=== PATIENT | male | born 1950 | race Caucasian/White ===

== ENCOUNTER 2016-12-14 07:04 | Day surgery (SDC) | payer OTHER, MEDICARE ==
[2016-12-14] MEDS ORDERED: D5 LR 1000 ML 1,000 ML IV ONE (07:24)
[2016-12-14] MEDS ORDERED: NS 1000 ML 1,000 ML ONE (07:29)
[2016-12-14] MEDS ORDERED: XYLOCAINE 2 % (PLAIN) ONE (08:14)
[2016-12-14] MEDS ORDERED: DIPRIVAN VIAL 20 ML ONE (08:14)
[2016-12-14] MEDS ORDERED: DIPRIVAN VIAL 10 ML ONE (08:40)
[2016-12-14 09:52] VITALS: BP 130/61
== END 2016-12-14 09:10 | disposition home or self-care (01) ==
LOC: SURG1 07:04
PROVIDERS: ATTEND Internal Medicine Gastroenterology
PROC: 0DBM8ZX Excision of Descending Colon, Via Natural or Artificial Opening Endoscopic, Diagnostic (ICD-10-PCS; principal; 2016-12-14 07:30)
PROC: 0DBK8ZX Excision of Ascending Colon, Via Natural or Artificial Opening Endoscopic, Diagnostic (ICD-10-PCS; principal; 2016-12-14 07:30)
PROC: 0DJD8ZZ Inspection of Lower Intestinal Tract, Via Natural or Artificial Opening Endoscopic (ICD-10-PCS; principal; 2016-12-14 07:30)
DX: Z86.010 Personal history of colon polyps (principal); R19.4 Change in bowel habit; K63.5 Polyp of colon; K64.0 First degree hemorrhoids
CPT/HCPCS: A4217; J2001; J3490; J7120

== ENCOUNTER 2024-08-03 08:15 | Inpatient (IN) ==
[2024-08-03 09:08] LABS: BASOPHILS % (AUTO) 0.3 % (0.2-1.0); EOSINOPHILS # (AUTO) 0.6 x10^3/uL (0.0-0.2); EOSINOPHILS % (AUTO) 4.8 % (0.9-2.9); HEMATOCRIT 44.2 % (42.0-54.0); HEMOGLOBIN 15.4 g/dL (13.5-18.0); LYMPHOCYTES # (AUTO) 2.4 X10^3/uL (1.3-2.9); LYMPHOCYTES % (AUTO) 20.2 % (21.0-51.0); MEAN CORPUSCULAR HEMOGLOBIN 33.7 pg (27.0-34.0); MEAN CORPUSCULAR HGB CONC 34.9 g/dL (33.0-35.0); MEAN CORPUSCULAR VOLUME 96.4 fL (80.0-100.0); MEAN PLATELET VOLUME 8.4 fL (7.4-11.0); MONOCYTES # (AUTO) 1.1 x10^3/uL (0.3-0.8); NEUTROPHILS # (AUTO) 7.6 x10^3/uL (2.2-4.8); NEUTROPHILS % (AUTO) 65.7 % (42.0-75.0); PLATELET COUNT 267 X10^3/uL (150.0-450.0); RED BLOOD COUNT 4.58 X10^6/uL (4.7-6.0); RED CELL DISTRIBUTION WIDTH 13.2 % (11.6-16.5); WHITE BLOOD COUNT 11.6 X10^3/uL (3.6-10.0)
[2024-08-03 09:14] LABS: ALANINE AMINOTRANSFERASE 25 Units/L (12-78); ALBUMIN 3.8 g/dL (3.4-5.0); ALKALINE PHOSPHATASE 48 Units/L (46-116); AMYLASE 25 Units/L (25-115); ASPARTATE AMINO TRANSFERASE 15 Units/L (15-37); BLOOD UREA NITROGEN 44 mg/dL (7-18); CALCIUM 9.3 mg/dL (8.5-10.1); CARBON DIOXIDE 21.3 mmol/L (21-32); CHLORIDE 95 mmol/L (98-107); COR NA(FOR HYPERGLY) 132 mmol/L (136-145); GLUCOSE 227 mg/dL (65-99); LIPASE 33 Units/L (16-77); POTASSIUM 4.2 mmol/L (3.5-5.1); SODIUM 129 mmol/L (136-145); TOTAL PROTEIN 7.7 g/dL (6.4-8.2); eGFR NON BLACK RACES 23 (>60)
[2024-08-03] MEDS: ZOFRAN INJ 4 MG VIAL IVP ONE (09:20)
[2024-08-03] MEDS: NS 1,000 ML IV 1,000 ML IV ONE (09:20)
[2024-08-03] MEDS: IMODIUM CAP 2 MG PO ONE (09:21)
--- NOTE | 2024-08-03 10:02 | CT ---
EXAM:ABDOMEN/PELVIS W/O CONHISTORY:last two weeks he's had fever, chills, n/v, diarrhea, no appetite and lethargic. Pt states he has bilateral lower abdominal pain;COMPARISON:None.TECHNIQUE:Multiple axial images of the abdomen and pelvis were obtained from the lung bases to the pubic symphysis without the administration of IV contrast. Dose reduction techniques including Automated Exposure Control (AEC) and adjustment of mA and kV were utilized.FINDINGS:The visualized portions of the lung bases are clear.The liver is normal in attenuation for noncontrast exam. There is no biliary dilatation identified.No radiopaque gallstones or acute inflammatory changes of the gallbladder.The spleen is average size.No inflammatory changes of the pancreas are identified.The adrenal glands are symmetric in size and overall morphology.No hydronephrosis of the left or right kidney. 22 mm Cortically based cyst of the lower pole of the left kidney. Nonobstructing left renal calculus measuring 7.5 mmNo significant mesenteric lymphadenopathy or stranding can be observed. No free fluid or free air is seen within the abdomen.Normal caliber aorta with generalized atherosclerosis which is contiguous with iliofemoral tributaries.Fluid-filled enteric and colonic segments are demonstrated with scattered air-fluid levels. Within limitations of a noncontrast assessment, no aggressively thickened bowel segments are demonstrated there is no mesenteric root edema, or evidence of inflammatory stranding of the mesenteric fat around the large or small bowel. A couple of ingested punctate radiopaque intraluminal foci are demonstrated within the right colon. A short-segment of jejunum appears marginally dilated in the left upper quadrant without discrete transition point. The remainder of the bowel is normal in caliber.The appendix is normal in caliber and without inflammatory change.Urinary bladder is contractedProstate gland is not visualized and may be surgically absent. No organized free fluid or lymphadenopathy of the pelvis is observed.A patulous fat containing left inguinal canal is observed. No aggressive bony lesions are identified. Postsurgical changes of the spine are demonstrated at the L3-4 level consisting of fusion with intervertebral spacer placement and posterior laminectomy defect. Degenerative changes of the spine are locally advanced at the levels of L3-4 and L4-5 where there is disc space narrowing, spondylosis and facet arthropathy.IMPRESSION:Fluid-filled enterocolonic segments with scattered air-fluid levels in keeping with a nonspecific diarrhea related illness; no acute radiological complications identified. Clinical correlation and routine follow-up neededAdditional chronic findings are detailed aboveTHIS IS AN ELECTRONICALLY VERIFIED FINAL REPORT08/03/2024 9:59 AM - Electronically signed by Jose Gale MD
[2024-08-03] MEDS: NS 1,000 ML IV 1,000 ML IV SCH ×2 (10:30→16:07)
--- NOTE | 2024-08-03 10:34 | DR.ABDMALE ---
HPI Time seen Time Seen by Provider: 08/03/24 08:43 PCP Primary Care Physician: Kev Wells HPI comment HPI Comment: Patient with complaints of diarrhea and fever for the last 2 weeks. Patient has had some nausea, decreased appetite and feeling wore out. Patient admits some bilateral lower abdominal pain described as cramping. Patient had stool culture ordered by PCP on Sunday. Complaint Chief Complaint:: Pt states for the last two weeks he's had fever, chills, n/v, diarrhea, no appetite and lethargic. Pt states he has bilateral lower abdominal pain that is cramping and stabbing that come and goes around 30 minutes at a time. Pt called his PCP and was told to bring a stool sample by the office. Pt brought it on Sunday. Self Treatment fo Chief Complaint: phenergan, leafran COVID-19 Coronavirus risk:travel/contact w/high risk person: No Has patient experienced Coronavirus symptoms: No Mode of arrival Mode of Arrival: Ambulatory Timing Onset of Chief Complaint: 07/20/24 PMH PMH Past Medical History: Yes Past Medical History: COPD, Diabetes, Dyslipidemia, GERD and Hypertension Past Medical History Comment: Prostate CA Past Surgical History: Yes Surgical History: Ortho Surgery Past Surgical History Comment: Prostate CA, left shoulder, lower back Family History History of Family Medical Conditions: Yes Family Medical History: Coronary Artery Disease and Heart Failure Social History Alcohol Use: Occasionally Do you use any recreational Drugs:: No Lives With: Spouse Lives Where: Home Travel Risk Coronavirus risk:travel/contact w/high risk person: No Has patient experienced Coronavirus symptoms: No Infectious screening Have you traveled outside the country in the last 6 months?: No Isolation: Standard ROS Review of Systems Constitutional: See HPI Eyes: No Symptoms Reported ENTM: No Symptoms Reported Respiratoy: No Symptoms Reported Cardiovascular: No Symptoms Reported Gastrointestinal/Abdominal: See HPI, Abdominal Pain, Diarrhea and Nausea; nega tive Constipation Genitourinary: No Symptoms Reported Neurological: No Symptoms Reported Musculoskeletal: No Symptoms Reported Integumentary: No Symptoms Reported Hematologic/Lymphatic: No Symptoms Reported Endocrine: No Symptoms Reported Psychiatric: No Symptoms Reported All Other Systems: Reviewed and Negative PE Vital Signs Vital Signs: Temp Pulse Resp BP Pulse Ox O2 Del Method 08/03/24 08:26 97.4 F L 106 H 16 107/54 97 Room Air General Limitations: No Limitations General Appearance: Alert and In No Apparent Distress Head Head Exam: Normal Inspection Eyes Eye exam: Normal Appearance ENT ENT Exam: Normal Exam Neck Neck Exam: Normal Inspection Chest Chest Inspection: Normal Inspection Respiratory Respiratory Exam: Normal Lung Sounds Bilat Cardiovascular Cardiovascular Exam: Regular Rate and Normal Rhythm Abdominal Exam Abdominal Exam: Normal Inspection, Normal Bowel Sounds, Soft, Distention and T enderness (Mild tenderness in lower abdomen bilaterally); negative Guarding, Rebound or Rigidity Rectal Rectal Exam: Deferred Back Back Exam: Normal Inspection Extremeties Extremities Exam: Normal Inspection Exam: Male: Deferred Neurologic Neurological Exam: Alert and Oriented X3 Psychiatric Psychiatric Exam: Normal Affect and Normal Mood Skin Skin Exam: Warm, Dry, Intact and Normal Color COURSE Treatment Treatment: Patient found to be very dehydrated with acute kidney injury. Symptoms have improved since in the ER. Consultation Called: 10:31 Consultation Comments: Discussed case with Dr. Caal and he is agreeable to admission. ROR Labs Reviewed 08/03/24 08:53 08/03/24 08:53 Laboratory: WBC 11.6 X10^3/uL (3.6-10.0) H 08/03/24 08:53 RBC 4.58 X10^6/uL (4.7-6.0) L 08/03/24 08:53 Hgb 15.4 g/dL (13.5-18.0) 08/03/24 08:53 Hct 44.2 % (42.0-54.0) 08/03/24 08:53 MCV 96.4 fL (80.0-100.0) 08/03/24 08:53 MCH 33.7 pg (27.0-34.0) 08/03/24 08:53 MCHC 34.9 g/dL (33.0-35.0) 08/03/24 08:53 RDW 13.2 % (11.6-16.5) 08/03/24 08:53 Plt Count 267 X10^3/uL (150.0-450.0) 08/03/24 08:53 MPV 8.4 fL (7.4-11.0) 08/03/24 08:53 Neut % (Auto) 65.7 % (42.0-75.0) 08/03/24 08:53 Lymph % (Auto) 20.2 % (21.0-51.0) L 08/03/24 08:53 [place] % (Auto) 9.0 % (0.0-13.0) 08/03/24 08:53 Eos % (Auto) 4.8 % (0.9-2.9) H 08/03/24 08:53 Baso % (Auto) 0.3 % (0.2-1.0) 08/03/24 08:53 Neut # (Auto) 7.6 x10^3/uL (2.2-4.8) H 08/03/24 08:53 Lymph # (Auto) 2.4 X10^3/uL (1.3-2.9) 08/03/24 08:53 [place] # (Auto) 1.1 x10^3/uL (0.3-0.8) H 08/03/24 08:53 Eos # (Auto) 0.6 x10^3/uL (0.0-0.2) H 08/03/24 08:53 Baso # (Auto) 0.0 X10^3/uL (0.0-0.1) 08/03/24 08:53 Absolute Nucleated RBC 0.0 /100WBC 08/03/24 08:53 Sodium 129 mmol/L (136-145) L 08/03/24 08:53 Corrected Sodium 132 mmol/L (136-145) L 08/03/24 08:53 Potassium 4.2 mmol/L (3.5-5.1) 08/03/24 08:53 Chloride 95 mmol/L (98-107) L 08/03/24 08:53 Carbon Dioxide 21.3 mmol/L (21-32) 08/03/24 08:53 BUN 44 mg/dL (7-18) H 08/03/24 08:53 Creatinine 2.90 mg/dL (0.70-1.30) H 08/03/24 08:53 Est GFR (MDRD) Af Amer 28 (>60) L 08/03/24 08:53 Est GFR (MDRD) Non-Af 23 (>60) L 08/03/24 08:53 Glucose 227 mg/dL (65-99) H 08/03/24 08:53 Calcium 9.3 mg/dL (8.5-10.1) 08/03/24 08:53 Corrected Calcium TNP 08/03/24 08:53 Total Bilirubin 0.40 mg/dL (0.2-1.0) 08/03/24 08:53 AST 15 Units/L (15-37) 08/03/24 08:53 ALT 25 Units/L (12-78) 08/03/24 08:53 Alkaline Phosphatase 48 Units/L (46-116) 08/03/24 08:53 Total Protein 7.7 g/dL (6.4-8.2) 08/03/24 08:53 Albumin 3.8 g/dL (3.4-5.0) 08/03/24 08:53 Globulin 3.9 g/dL (2.5-4.5) 08/03/24 08:53 Albumin/Globulin Ratio 1.0 Ratio (1.1-2.1) L 08/03/24 08:53 Amylase 25 Units/L (25-115) 08/03/24 08:53 Lipase 33 Units/L (16-77) 08/03/24 08:53 Opioid Opioid Risk Tool Age (Sanchez box if 16-45): No History of Preadolescent Sexual Abuse: No Total: 0 Total Score Risk Category: Low Risk Copyright: Aravind PINA predicting aberrant behaviors Discharge Plan Diagnosis Discharge Problem: Dehydration, Acute renal failure, Diarrhea Discharge Plan Patient Disposition: 09 ADMITTED INPATIENT Condition: Stable Orders to Discharge Patient Discharge Orders: Transfer (Routine); Ordered 08/03/24 Ordered By: Brannon Greer
[2024-08-03 11:28] LABS: CRYPTOSPORIDIUM PARVUM ANTIGEN NEGATIVE (NEGATIVE); GIARDIA LAMBLIA ANTIGEN NEGATIVE (NEGATIVE)
[2024-08-03 12:16] VITALS: BMI 26.2
[2024-08-03] MEDS ORDERED: MORPHINE SULFATE INJ 2 MG INJ IVP PRN (12:38)
[2024-08-03] MEDS ORDERED: TYLENOL 325 MG TAB PO PRN (12:38)
[2024-08-03] MEDS ORDERED: FLAGYL TAB 500 MG PO SCH (12:38)
[2024-08-03] MEDS: CIPRO IV 400 MG PREMIX* 400 MG/200 ML IV.SOLN. IV SCH (13:47)
[2024-08-03] MEDS: FLAGYL IV PREMIX 500 MG BAG 500 MG/100 ML BAG IV SCH (13:47)
[2024-08-03] MEDS: ZOFRAN INJ 4 MG VIAL IVP PRN (13:47)
[2024-08-03] MEDS: PROTONIX TAB 40 MG PO SCH (13:47)
[2024-08-03] MEDS ORDERED: ZESTRIL TAB 10 MG PO SCH (21:00)
[2024-08-03] MEDS ORDERED: ALPRAZOLAM 1 MG PO SCH (21:00)
[2024-08-03] MEDS: ZANAFLEX PO SCH (21:49)
[2024-08-03] MEDS: ALPRAZOLAM ODT PO SCH (21:49)
[2024-08-03] MEDS: SNACK - Diabetic Appropriate PO SCH (21:49)
[2024-08-04 05:08] LABS: BASOPHILS # (AUTO) 0.1 X10^3/uL (0.0-0.1); BASOPHILS % (AUTO) 0.5 % (0.2-1.0); EOSINOPHILS # (AUTO) 0.7 x10^3/uL (0.0-0.2); EOSINOPHILS % (AUTO) 7.5 % (0.9-2.9); HEMATOCRIT 39.6 % (42.0-54.0); LYMPHOCYTES # (AUTO) 3.4 X10^3/uL (1.3-2.9); LYMPHOCYTES % (AUTO) 35.9 % (21.0-51.0); MEAN CORPUSCULAR HGB CONC 35.4 g/dL (33.0-35.0); MEAN CORPUSCULAR VOLUME 95.8 fL (80.0-100.0); MEAN PLATELET VOLUME 8.4 fL (7.4-11.0); MONOCYTES # (AUTO) 1.1 x10^3/uL (0.3-0.8); MONOCYTES % (AUTO) 11.1 % (0.0-13.0); NEUTROPHILS # (AUTO) 4.2 x10^3/uL (2.2-4.8); PLATELET COUNT 212 X10^3/uL (150.0-450.0); RED BLOOD COUNT 4.13 X10^6/uL (4.7-6.0); RED CELL DISTRIBUTION WIDTH 13.4 % (11.6-16.5); WHITE BLOOD COUNT 9.5 X10^3/uL (3.6-10.0)
[2024-08-04 05:24] LABS: ALANINE AMINOTRANSFERASE 22 Units/L (12-78); ALBUMIN 3.4 g/dL (3.4-5.0); ALKALINE PHOSPHATASE 45 Units/L (46-116); ASPARTATE AMINO TRANSFERASE 16 Units/L (15-37); BLOOD UREA NITROGEN 35 mg/dL (7-18); CALCIUM 8.7 mg/dL (8.5-10.1); CARBON DIOXIDE 18.3 mmol/L (21-32); CHLORIDE 100 mmol/L (98-107); COR NA(FOR HYPERGLY) 136 mmol/L (136-145); CREATININE 2.15 mg/dL (0.70-1.30); GLUCOSE 159 mg/dL (65-99); POTASSIUM 3.6 mmol/L (3.5-5.1); SODIUM 135 mmol/L (136-145); TOTAL PROTEIN 7.1 g/dL (6.4-8.2); eGFR NON BLACK RACES 32 (>60)
[2024-08-04] MEDS: NS 1,000 ML IV 1,000 ML ONE (07:26)
[2024-08-04] MEDS: ZOFRAN INJ 4 MG VIAL ONE (07:27)
[2024-08-04] MEDS: LEXAPRO PO SCH (08:13)
[2024-08-04] MEDS: CIPRO IV 400 MG PREMIX* 400 MG/200 ML IV.SOLN. IV SCH (08:14)
[2024-08-04] MEDS: LEXAPRO ONE (09:10)
--- NOTE | 2024-08-04 09:54 | DR.H&P ---
H&P History & Physical for Day of: H&P Date: 08/03/24 Chief Complaint Chief Complaint: Abdominal pain, diarrhea and poor intake History of Present Illness History of Present Illness: Mr. Hull is a 74-year-old male with a past medical history of hypertension, diabetes, GERD, hyperlipidemia presented with worsening diarrhea, abdominal pain and weakness. He reports having intermittent diarrhea for the past month but recently got worse. He did see his PCP on Sunday and dropped off a stool sample. He states he was going over 30 times a day to the bathroom with loose stool. Denies any blood. He has not been able to eat much for the past few days due to decreased appetite and nausea. Denies vomiting. He reports left lower quadrant abdominal pain. He also reports not able to urinate for the past 3 days. ER workup showed elevated WBC, creatinine 2.9 BUN 44. He was started on IV fluids. His stool studies show FOBT positive, fecal WBC positive, negative C. difficile and Campy. He was admitted for further evaluation. Labs/imaging reviewed: - WBC 11.6 hemoglobin 15.4 sodium 129 potassium 4.2 BUN 44 creatinine 2.90 glucose 227 - CTAP reviewed - Stool studies reviewed Plan: Admit to [facility]. Continue hydration. Will start Cipro and Flagyl. Monitor renal function. Hold nephrotoxic medications. Zofran as needed. Follow stool studies. Replace electrolytes as per protocol. Resume home medications. Add sliding scale insulin. Adavnce diet as tolerated. Monitor a.m. labs and imaging. Past Medical History Past Medical History: COPD, Diabetes, Dyslipidemia, GERD and Hypertension Past Surgical History Surgical History: Ortho Surgery Family History Family Medical History: Coronary Artery Disease and Heart Failure Social History Alcohol Use: Occasionally Medications Home Medications: Home Medications Medication Instructions Recorded Confirmed Type omeprazole 20 mg capsule,delayed 20 mg PO HS 08/17/12 08/03/24 History release Lisinopril 10 mg PO BID 03/07/14 08/03/24 History escitalopram oxalate 20 mg tablet 30 mg PO HS 03/07/14 08/03/24 History (Lexapro) alprazolam 1 mg tablet (Xanax) 1 mg PO HS 02/21/18 08/03/24 History canagliflozin 50 mg-metformin 1 tab PO BID 02/21/18 08/03/24 History 1,000 mg tablet (Invokamet) fenofibrate 160 mg tablet 160 mg PO QDAY 02/21/18 08/03/24 History rosuvastatin 40 mg tablet (Crestor) 40 mg PO HS 02/21/18 08/03/24 History Allergies Allergies Allergy/AdvReac Type Severity Reaction Status Date / Time No Known Drug Allergies Allergy Verified 08/03/24 08:33 Labs 08/04/24 04:36 08/04/24 04:36 Labs: 08/03/24 10:36 Stool - Final Laboratory WBC 11.6 X10^3/uL (3.6-10.0) H 08/03/24 08:53 RBC 4.58 X10^6/uL (4.7-6.0) L 08/03/24 08:53 Hgb 15.4 g/dL (13.5-18.0) 08/03/24 08:53 Hct 44.2 % (42.0-54.0) 08/03/24 08:53 MCV 96.4 fL (80.0-100.0) 08/03/24 08:53 MCH 33.7 pg (27.0-34.0) 08/03/24 08:53 MCHC 34.9 g/dL (33.0-35.0) 08/03/24 08:53 RDW 13.2 % (11.6-16.5) 08/03/24 08:53 Plt Count 267 X10^3/uL (150.0-450.0) 08/03/24 08:53 MPV 8.4 fL (7.4-11.0) 08/03/24 08:53 Neut % (Auto) 65.7 % (42.0-75.0) 08/03/24 08:53 Lymph % (Auto) 20.2 % (21.0-51.0) L 08/03/24 08:53 [place] % (Auto) 9.0 % (0.0-13.0) 08/03/24 08:53 Eos % (Auto) 4.8 % (0.9-2.9) H 08/03/24 08:53 Baso % (Auto) 0.3 % (0.2-1.0) 08/03/24 08:53 Neut # (Auto) 7.6 x10^3/uL (2.2-4.8) H 08/03/24 08:53 Lymph # (Auto) 2.4 X10^3/uL (1.3-2.9) 08/03/24 08:53 [place] # (Auto) 1.1 x10^3/uL (0.3-0.8) H 08/03/24 08:53 Eos # (Auto) 0.6 x10^3/uL (0.0-0.2) H 08/03/24 08:53 Baso # (Auto) 0.0 X10^3/uL (0.0-0.1) 08/03/24 08:53 Absolute Nucleated RBC 0.0 /100WBC 08/03/24 08:53 Sodium 129 mmol/L (136-145) L 08/03/24 08:53 Corrected Sodium 132 mmol/L (136-145) L 08/03/24 08:53 Potassium 4.2 mmol/L (3.5-5.1) 08/03/24 08:53 Chloride 95 mmol/L (98-107) L 08/03/24 08:53 Carbon Dioxide 21.3 mmol/L (21-32) 08/03/24 08:53 BUN 44 mg/dL (7-18) H 08/03/24 08:53 Creatinine 2.90 mg/dL (0.70-1.30) H 08/03/24 08:53 Est GFR (MDRD) Af Amer 28 (>60) L 08/03/24 08:53 Est GFR (MDRD) Non-Af 23 (>60) L 08/03/24 08:53 Glucose 227 mg/dL (65-99) H 08/03/24 08:53 Calcium 9.3 mg/dL (8.5-10.1) 08/03/24 08:53 Corrected Calcium TNP 08/03/24 08:53 Total Bilirubin 0.40 mg/dL (0.2-1.0) 08/03/24 08:53 AST 15 Units/L (15-37) 08/03/24 08:53 ALT 25 Units/L (12-78) 08/03/24 08:53 Alkaline Phosphatase 48 Units/L (46-116) 08/03/24 08:53 Total Protein 7.7 g/dL (6.4-8.2) 08/03/24 08:53 Albumin 3.8 g/dL (3.4-5.0) 08/03/24 08:53 Globulin 3.9 g/dL (2.5-4.5) 08/03/24 08:53 Albumin/Globulin Ratio 1.0 Ratio (1.1-2.1) L 08/03/24 08:53 Amylase 25 Units/L (25-115) 08/03/24 08:53 Lipase 33 Units/L (16-77) 08/03/24 08:53 Stl Occult Blood (IFOB) Positive (NEGATIVE) A 08/03/24 10:36 Stool for White Cells Positive (NEGATIVE) A 08/03/24 10:36 Stl C. diff Tox B Gene Negative (NEGATIVE) 08/03/24 10:36 Stl C. diff [id number]-[id number] Presumptive negative (NEGATIVE) 08/03/24 10:36 Stool H. pylori Ag Negative (NEGATIVE) 08/03/24 10:36 Cryptosporid parvum Ag Negative (NEGATIVE) 08/03/24 10:36 Giardia lamblia Ag Negative (NEGATIVE) 08/03/24 10:36 Review of Systems Constitutional: Weakness Eyes: No Symptoms Reported Respiratory: No Symptoms Reported Cardiovascular: No Symptoms Reported Gastrointestinal: Nausea, Abdominal Pain and Diarrhea Genitourinary: Retention Musculoskeletal: No Symptoms Reported Skin: No Symptoms Reported Neurological: No Symptoms Reported Physical Exam Vital Signs: Vital Signs Temperature 97.4 F Pulse Rate 106 Respiratory Rate 16 Respiratory Rate 16 Blood Pressure 107/54 O2 Sat by Pulse Oximetry 96 O2 Sat by Pulse Oximetry 97 Oriented: Normal Eyes: Normal Throat: Normal Respiratory: Clear Throughout Cardiovascular: Normal Auscultation: Bowel Sounds: Normal Tenderness: LLQ and Mild Musculoskeletal: Normal Psychiatric: Normal Mood Description: Calm Affect: Normal Speech Pattern: Clear and Appropriate Assessment/Plan (1) Acute renal failure: Qualifiers: Acute renal failure type: unspecified Qualified Code(s): N17.9 - Acute kidney failure, unspecified Status: Acute (2) Diarrhea: Qualifiers: Diarrhea type: unspecified type Qualified Code(s): R19.7 - Diarrhea, unspecified Status: Acute (3) Dehydration: Status: Acute (4) Colitis: Status: Acute (5) Hypertension: Qualifiers: Hypertension type: primary hypertension Qualified Code(s): I10 - Essential (primary) hypertension Status: Chronic (6) GERD (gastroesophageal reflux disease): Qualifiers: Esophagitis presence: esophagitis presence not specified Qualified Code(s): K21.9 - Gastro-esophageal reflux disease without esophagitis Status: Chronic Review H&P Reviewed: Yes Patient was examined?: Yes
[2024-08-04] MEDS ORDERED: NORCO 5/325 MG TAB PO PRN (10:02)
--- NOTE | 2024-08-04 10:10 | PCM.PROG ---
Progress Note Progress Note for Day of Date of Exam: 08/04/24 Subjective Subjective: Patient seen at bedside, no acute events overnight. He is feeling better today. He still has some diarrhea but not as much as before. No vomiting. His abdominal pain has improved. He is currently admitted for dehydration, ARABELLA and colitis. His renal function has improved. He remains on IV fluids. Lab/imaging reviewed - WBC 9.5 hemoglobin 14 potassium 3.6 creatinine 2.15 glucose 159 Plan: Continue hydration with normal saline, monitor renal function. Replace electrolytes as per protocol. Continue IV Cipro and Flagyl. Continue home medications. Advance diet to full liquids. PT/OT as tolerated. Follow-up pending stool studies. Continue pain control, switch to [place] prn. Monitor a.m. labs and imaging. Past Medical Family Social History Allergies: Allergies No Known Drug Allergies Allergy (Verified 08/03/24 08:33) Vital Signs and I&O's Vital Signs: Vital Signs Temperature 98.2 F Temperature 98.1 F Pulse Rate [Left] 76 Pulse Rate [Left] 71 Respiratory Rate 17 Respiratory Rate 18 Blood Pressure [Left Arm] 149/65 Blood Pressure [Left Arm] 145/67 O2 Sat by Pulse Oximetry 99 O2 Sat by Pulse Oximetry 97 Intake and Output: Intake & Output 08/01/24 08/02/24 08/03/24 08/04/24 23:59 23:59 23:59 23:59 Intake Total 1619 / 1619 591 / 591 Output Total 0 / 0 Balance 1619 / 1619 591 / 591 Physical Exam Oriented: Normal Eyes: Normal Throat: Normal Respiratory: Normal Cardiovascular: Normal Auscultation: Bowel Sounds: Normal Tenderness: LLQ and Mild Skin: Normal Musculoskeletal: Normal Psychiatric: Normal Mood Description: Calm Affect: Normal Speech Pattern: Clear and Appropriate Laboratory and Diagnostics 08/04/24 04:36 08/04/24 04:36 Labs: 08/03/24 10:36 Stool Stool Culture - Preliminary 08/03/24 10:36 Stool - Final Laboratory WBC 9.5 X10^3/uL (3.6-10.0) 08/04/24 04:36 RBC 4.13 X10^6/uL (4.7-6.0) L 08/04/24 04:36 Hgb 14.0 g/dL (13.5-18.0) 08/04/24 04:36 Hct 39.6 % (42.0-54.0) L 08/04/24 04:36 MCV 95.8 fL (80.0-100.0) 08/04/24 04:36 MCH 34.0 pg (27.0-34.0) 08/04/24 04:36 MCHC 35.4 g/dL (33.0-35.0) H 08/04/24 04:36 RDW 13.4 % (11.6-16.5) 08/04/24 04:36 Plt Count 212 X10^3/uL (150.0-450.0) 08/04/24 04:36 MPV 8.4 fL (7.4-11.0) 08/04/24 04:36 Neut % (Auto) 45.0 % (42.0-75.0) 08/04/24 04:36 Lymph % (Auto) 35.9 % (21.0-51.0) 08/04/24 04:36 Josephine % (Auto) 11.1 % (0.0-13.0) 08/04/24 04:36 Eos % (Auto) 7.5 % (0.9-2.9) H 08/04/24 04:36 Baso % (Auto) 0.5 % (0.2-1.0) 08/04/24 04:36 Neut # (Auto) 4.2 x10^3/uL (2.2-4.8) 08/04/24 04:36 Lymph # (Auto) 3.4 X10^3/uL (1.3-2.9) H 08/04/24 04:36 Josephine # (Auto) 1.1 x10^3/uL (0.3-0.8) H 08/04/24 04:36 Eos # (Auto) 0.7 x10^3/uL (0.0-0.2) H 08/04/24 04:36 Baso # (Auto) 0.1 X10^3/uL (0.0-0.1) 08/04/24 04:36 Absolute Nucleated RBC 0.1 /100WBC 08/04/24 04:36 Sodium 135 mmol/L (136-145) L 08/04/24 04:36 Corrected Sodium 136 mmol/L (136-145) 08/04/24 04:36 Potassium 3.6 mmol/L (3.5-5.1) 08/04/24 04:36 Chloride 100 mmol/L (98-107) 08/04/24 04:36 Carbon Dioxide 18.3 mmol/L (21-32) L 08/04/24 04:36 BUN 35 mg/dL (7-18) H 08/04/24 04:36 Creatinine 2.15 mg/dL (0.70-1.30) H 08/04/24 04:36 Est GFR (MDRD) Af Amer 39 (>60) L 08/04/24 04:36 Est GFR (MDRD) Non-Af 32 (>60) L 08/04/24 04:36 Glucose 159 mg/dL (65-99) H 08/04/24 04:36 Calcium 8.7 mg/dL (8.5-10.1) 08/04/24 04:36 Corrected Calcium TNP 08/04/24 04:36 Total Bilirubin 0.40 mg/dL (0.2-1.0) 08/04/24 04:36 AST 16 Units/L (15-37) 08/04/24 04:36 ALT 22 Units/L (12-78) 08/04/24 04:36 Alkaline Phosphatase 45 Units/L (46-116) L 08/04/24 04:36 Total Protein 7.1 g/dL (6.4-8.2) 08/04/24 04:36 Albumin 3.4 g/dL (3.4-5.0) 08/04/24 04:36 Globulin 3.7 g/dL (2.5-4.5) 08/04/24 04:36 Albumin/Globulin Ratio 0.9 Ratio (1.1-2.1) L 08/04/24 04:36 Amylase 25 Units/L (25-115) 08/03/24 08:53 Lipase 33 Units/L (16-77) 08/03/24 08:53 Stl Occult Blood (IFOB) Positive (NEGATIVE) A 08/03/24 10:36 Stool for White Cells Positive (NEGATIVE) A 08/03/24 10:36 Stl C. diff Tox B Gene Negative (NEGATIVE) 08/03/24 10:36 Stl C. diff [id number] Presumptive negative (NEGATIVE) 08/03/24 10:36 Stool H. pylori Ag Negative (NEGATIVE) 08/03/24 10:36 Cryptosporid parvum Ag Negative (NEGATIVE) 08/03/24 10:36 Giardia lamblia Ag Negative (NEGATIVE) 08/03/24 10:36 Plan (1) Acute renal failure: Status: Acute Qualifiers: Acute renal failure type: unspecified Qualified Code(s): N17.9 - Acute kidney failure, unspecified (2) Diarrhea: Status: Acute Qualifiers: Diarrhea type: unspecified type Qualified Code(s): R19.7 - Diarrhea, unspecified (3) Dehydration: Status: Acute (4) Colitis: Status: Acute (5) Hypertension: Status: Chronic Qualifiers: Hypertension type: primary hypertension Qualified Code(s): I10 - Essential (primary) hypertension (6) GERD (gastroesophageal reflux disease): Status: Chronic Qualifiers: Esophagitis presence: esophagitis presence not specified Qualified Code(s): K21.9 - Gastro-esophageal reflux disease without esophagitis
[2024-08-04] MEDS: NovoLIN R (or HumuLIN R) SUBCUT PRN (11:40)
[2024-08-04 12:05] LABS: BILIRUBIN,URINE NEGATIVE (NEGATIVE); BLOOD/HEMOGLOBIN,URINE NEGATIVE (NEGATIVE); GLUCOSE, URINE 2+ (NEGATIVE); KETONES,URINE NEGATIVE (NEGATIVE); LEUKOCYTE ESTERASE ,URINE NEGATIVE (NEGATIVE); NITRITES,URINE NEGATIVE (NEGATIVE); PROTEIN,URINE 1+ (NEGATIVE); UROBILINOGEN,URINE NORMAL (NORMAL)
[2024-08-04 12:08] LABS: APPEARANCE,URINE CLEAR (CLEAR); COLOR,URINE YELLOW (YELLOW)
[2024-08-04 12:11] LABS: BACTERIA,URINE NEGATIVE /HPF (NEGATIVE); RBC,URINE NONE SEEN /HPF (0-3); SQUAMOUS EPITHELIAL CELL,UR RARE /HPF (NEGATIVE)
[2024-08-04] MEDS: IMODIUM CAP 2 MG PO PRN (20:59)
[2024-08-05 06:22] LABS: BASOPHILS # (AUTO) 0.1 X10^3/uL (0.0-0.1); BASOPHILS % (AUTO) 0.8 % (0.2-1.0); EOSINOPHILS # (AUTO) 0.9 x10^3/uL (0.0-0.2); HEMATOCRIT 34.5 % (42.0-54.0); HEMOGLOBIN 12.4 g/dL (13.5-18.0); LYMPHOCYTES # (AUTO) 1.7 X10^3/uL (1.3-2.9); LYMPHOCYTES % (AUTO) 25.3 % (21.0-51.0); MEAN CORPUSCULAR HEMOGLOBIN 34.2 pg (27.0-34.0); MEAN CORPUSCULAR HGB CONC 35.8 g/dL (33.0-35.0); MEAN CORPUSCULAR VOLUME 95.6 fL (80.0-100.0); MEAN PLATELET VOLUME 8.7 fL (7.4-11.0); MONOCYTES # (AUTO) 0.5 x10^3/uL (0.3-0.8); MONOCYTES % (AUTO) 8.2 % (0.0-13.0); NEUTROPHILS # (AUTO) 3.4 x10^3/uL (2.2-4.8); NEUTROPHILS % (AUTO) 51.7 % (42.0-75.0); PLATELET COUNT 167 X10^3/uL (150.0-450.0); RED BLOOD COUNT 3.61 X10^6/uL (4.7-6.0); RED CELL DISTRIBUTION WIDTH 13.2 % (11.6-16.5); WHITE BLOOD COUNT 6.6 X10^3/uL (3.6-10.0)
[2024-08-05 06:44] LABS: ALANINE AMINOTRANSFERASE 16 Units/L (12-78); ALBUMIN 3.1 g/dL (3.4-5.0); ALKALINE PHOSPHATASE 42 Units/L (46-116); ASPARTATE AMINO TRANSFERASE 22 Units/L (15-37); BLOOD UREA NITROGEN 15 mg/dL (7-18); CALCIUM 9.1 mg/dL (8.5-10.1); CARBON DIOXIDE 20.2 mmol/L (21-32); CHLORIDE 106 mmol/L (98-107); COR CA(FOR HYPOALB) 9.8 mg/dL (8.5-10.1); COR NA(FOR HYPERGLY) 141 mmol/L (136-145); CREATININE 1.28 mg/dL (0.70-1.30); GLUCOSE 127 mg/dL (65-99); MAGNESIUM 1.4 mg/dL (2.0-2.9); POTASSIUM 3.8 mmol/L (3.5-5.1); SODIUM 140 mmol/L (136-145); TOTAL PROTEIN 6.4 g/dL (6.4-8.2); eGFR NON BLACK RACES 59 (>60)
[2024-08-05] MEDS ORDERED: CONSULT PHARMACY - POTASSIUM & MAGNESIUM XX SCH ×2 (07:00→08:00)
[2024-08-05 08:23] VITALS: PULSE 75; O2SAT 99
[2024-08-05] MEDS ORDERED: NS 1,000 ML IV 1,000 ML with MAGNESIUM SULFATE 50% INJ VIAL 1 G IV SCH (09:00)
[2024-08-05] MEDS ORDERED: MAGNESIUM SULFATE 1 GRAM/100 mL PREMIX 1 G/100 ML BAG IV SCH (09:00)
[2024-08-05] MEDS ORDERED: LEXAPRO ONE (09:30)
[2024-08-05] MEDS: NS 1,000 ML IV 1,000 ML IV SCH (09:48)
[2024-08-05] MEDS: POTASSIUM CHLORIDE LIQ PO ONE (09:50)
[2024-08-05] MEDS: NS 500 ML IV 500 ML with MAGNESIUM SULFATE 50% INJ VIAL 4 G IV NR (09:52)
[2024-08-05 13:39] VITALS: BP 176/73; RESP 17; TEMP 97.8
--- NOTE | 2024-08-05 16:24 | W.DIS.FURT ---
Summary of Discharge Discharge Summary of Date Date of Exam: 08/05/24 Admission Date Date of Admission: 08/03/24 Admission Diagnosis Patient Problems (Updated 08/03/24 @ 12:24 by Renetta Laurent MD) Dehydration (Acute) E86.0 Acute renal failure (Acute) N17.9 Diarrhea (Acute) R19.7 Hospital Course: Mr. Hull is a 74-year-old male with a past medical history of hypertension, diabetes, GERD, hyperlipidemia presented with worsening diarrhea, abdominal pain and weakness. He reports having intermittent diarrhea for the past month but recently got worse. He did see his PCP on Sunday and dropped off a stool sample. He states he was going over 30 times a day to the bathroom with loose stool. Denies any blood. He has not been able to eat much for the past few days due to decreased appetite and nausea. Denies vomiting. He reports left lower quadrant abdominal pain. He also reports not able to urinate for the past 3 days. ER workup showed elevated WBC, creatinine 2.9 BUN 44. He was started on IV fluids. His stool studies show FOBT positive, fecal WBC positive, negative C. difficile and Campy. CTAP showed fluid-filled enterocolonic segments with scattered air-fluid levels in keeping with a nonspecific diarrhea related illness. He was admitted for further evaluation. He was started on IV antibiotics. His labs were monitored daily and electrolytes replaced as needed. He was continued on hydration and his renal function improved. His diet was advanced as tolerated. His diarrhea and abdominal pain resolved. He was tolerating p.o. intake. He was ambulating in the room. He was stable for discharge home on p.o. antibiotics. He will follow-up with PCP as scheduled. Vital Signs: Vital Signs (72 hours) 08/03/24 08:26 08/03/24 11:00 08/03/24 12:00 Temperature 97.4 F L 97.9 F Pulse Rate 106 H Pulse Rate [Left] 95 H Respiratory Rate 16 16 21 Blood Pressure 107/54 Blood Pressure [Left Arm] 143/65 Blood Pressure [Right Arm] O2 Sat by Pulse Oximetry 97 96 99 Oxygen Delivery Method Room Air Room Air Room Air 08/03/24 14:44 08/03/24 16:00 08/03/24 16:00 Temperature 97.5 F L 97.5 F L Pulse Rate Pulse Rate [Left] 89 89 Respiratory Rate 20 20 Blood Pressure Blood Pressure [Left Arm] 133/62 133/62 Blood Pressure [Right Arm] O2 Sat by Pulse Oximetry 98 98 Oxygen Delivery Method Room Air Room Air Room Air 08/03/24 20:00 08/03/24 19:00 08/03/24 23:56 Temperature 98.4 F 97.9 F Pulse Rate Pulse Rate [Left] 89 89 Respiratory Rate 19 19 Blood Pressure Blood Pressure [Left Arm] 138/83 118/56 Blood Pressure [Right Arm] O2 Sat by Pulse Oximetry 98 97 Oxygen Delivery Method Room Air Room Air Room Air 08/04/24 03:46 08/04/24 09:11 08/04/24 08:00 Temperature 98.1 F 98.2 F Pulse Rate Pulse Rate [Left] 71 76 Respiratory Rate 18 17 Blood Pressure Blood Pressure [Left Arm] 145/67 149/65 Blood Pressure [Right Arm] O2 Sat by Pulse Oximetry 97 99 Oxygen Delivery Method Room Air Room Air Room Air 08/04/24 12:00 08/04/24 16:00 08/04/24 19:00 Temperature 98.5 F 98.1 F Pulse Rate Pulse Rate [Left] 82 97 H Respiratory Rate 18 18 Blood Pressure Blood Pressure [Left Arm] 134/62 Blood Pressure [Right Arm] 170/60 O2 Sat by Pulse Oximetry 97 98 Oxygen Delivery Method Room Air Room Air Room Air 08/04/24 20:00 08/04/24 22:00 08/05/24 00:00 Temperature 97.5 F L 98.1 F Pulse Rate Pulse Rate [Left] 79 71 Respiratory Rate 18 18 Blood Pressure Blood Pressure [Left Arm] Blood Pressure [Right Arm] 169/72 99/52 122/60 O2 Sat by Pulse Oximetry 97 99 Oxygen Delivery Method Room Air Room Air 08/05/24 04:00 08/05/24 08:00 08/05/24 09:57 Temperature 98.5 F 97.7 F Pulse Rate Pulse Rate [Left] 74 75 Respiratory Rate 18 18 Blood Pressure Blood Pressure [Left Arm] Blood Pressure [Right Arm] 128/59 147/66 O2 Sat by Pulse Oximetry 98 99 Oxygen Delivery Method Room Air Room Air Room Air Labs: Laboratory Last Values WBC 6.6 X10^3/uL (3.6-10.0) 08/05/24 05:54 RBC 3.61 X10^6/uL (4.7-6.0) L 08/05/24 05:54 Hgb 12.4 g/dL (13.5-18.0) L 08/05/24 05:54 Hct 34.5 % (42.0-54.0) L 08/05/24 05:54 MCV 95.6 fL (80.0-100.0) 08/05/24 05:54 MCH 34.2 pg (27.0-34.0) H 08/05/24 05:54 MCHC 35.8 g/dL (33.0-35.0) H 08/05/24 05:54 RDW 13.2 % (11.6-16.5) 08/05/24 05:54 Plt Count 167 X10^3/uL (150.0-450.0) 08/05/24 05:54 MPV 8.7 fL (7.4-11.0) 08/05/24 05:54 Neut % (Auto) 51.7 % (42.0-75.0) 08/05/24 05:54 Lymph % (Auto) 25.3 % (21.0-51.0) 08/05/24 05:54 [place] % (Auto) 8.2 % (0.0-13.0) 08/05/24 05:54 Eos % (Auto) 14.0 % (0.9-2.9) H 08/05/24 05:54 Baso % (Auto) 0.8 % (0.2-1.0) 08/05/24 05:54 Neut # (Auto) 3.4 x10^3/uL (2.2-4.8) 08/05/24 05:54 Lymph # (Auto) 1.7 X10^3/uL (1.3-2.9) 08/05/24 05:54 [place]anner # (Auto) 0.5 x10^3/uL (0.3-0.8) 08/05/24 05:54 Eos # (Auto) 0.9 x10^3/uL (0.0-0.2) H 08/05/24 05:54 Baso # (Auto) 0.1 X10^3/uL (0.0-0.1) 08/05/24 05:54 Absolute Nucleated RBC 0.1 /100WBC 08/05/24 05:54 Sodium 140 mmol/L (136-145) 08/05/24 05:54 Corrected Sodium 141 mmol/L (136-145) 08/05/24 05:54 Potassium 3.8 mmol/L (3.5-5.1) 08/05/24 05:54 Chloride 106 mmol/L (98-107) 08/05/24 05:54 Carbon Dioxide 20.2 mmol/L (21-32) L 08/05/24 05:54 BUN 15 mg/dL (7-18) 08/05/24 05:54 Creatinine 1.28 mg/dL (0.70-1.30) 08/05/24 05:54 Est GFR (MDRD) Af Amer > 60 (>60) 08/05/24 05:54 Est GFR (MDRD) Non-Af 59 (>60) 08/05/24 05:54 Glucose 127 mg/dL (65-99) H 08/05/24 05:54 POC Glucose (mg/dL) 107 mg/dL (65-99) H 08/05/24 05:16 Calcium 9.1 mg/dL (8.5-10.1) 08/05/24 05:54 Corrected Calcium 9.8 mg/dL (8.5-10.1) 08/05/24 05:54 Magnesium 1.4 mg/dL (2.0-2.9) L 08/05/24 05:54 Total Bilirubin 0.30 mg/dL (0.2-1.0) 08/05/24 05:54 AST 22 Units/L (15-37) 08/05/24 05:54 ALT 16 Units/L (12-78) 08/05/24 05:54 Alkaline Phosphatase 42 Units/L (46-116) L 08/05/24 05:54 Total Protein 6.4 g/dL (6.4-8.2) 08/05/24 05:54 Albumin 3.1 g/dL (3.4-5.0) L 08/05/24 05:54 Globulin 3.3 g/dL (2.5-4.5) 08/05/24 05:54 Albumin/Globulin Ratio 0.9 Ratio (1.1-2.1) L 08/05/24 05:54 Amylase 25 Units/L (25-115) 08/03/24 08:53 Lipase 33 Units/L (16-77) 08/03/24 08:53 Specimen Type Clean catch urine 08/04/24 11:52 Urine Color Yellow (YELLOW) 08/04/24 11:52 Urine Appearance Clear (CLEAR) 08/04/24 11:52 Urine pH 5.0 (5.0 - 8.0) 08/04/24 11:52 Ur Specific [place] 1.015 (1.000-1.030) 08/04/24 11:52 Urine Protein 1+ (NEGATIVE) 08/04/24 11:52 Urine Glucose (UA) 2+ (NEGATIVE) 08/04/24 11:52 Urine Ketones Negative (NEGATIVE) 08/04/24 11:52 Urine Blood Negative (NEGATIVE) 08/04/24 11:52 Urine Nitrite Negative (NEGATIVE) 08/04/24 11:52 Urine Bilirubin Negative (NEGATIVE) 08/04/24 11:52 Urine Urobilinogen Normal (NORMAL) 08/04/24 11:52 Ur Leukocyte Esterase Negative (NEGATIVE) 08/04/24 11:52 Urine RBC None seen /HPF (0-3) 08/04/24 11:52 Urine WBC None seen /HPF (0-5) 08/04/24 11:52 Ur Squamous Epith Cells Rare /HPF (NEGATIVE) 08/04/24 11:52 Urine Bacteria Negative /HPF (NEGATIVE) 08/04/24 11:52 Ur Culture Indicated? No/not indicated 08/04/24 11:52 Stl Occult Blood (IFOB) Positive (NEGATIVE) A 08/03/24 10:36 Stool for White Cells Positive (NEGATIVE) A 08/03/24 10:36 Stl C. diff Tox B Gene Negative (NEGATIVE) 08/03/24 10:36 Stl C. diff [id number] Presumptive negative (NEGATIVE) 08/03/24 10:36 Stool H. pylori Ag Negative (NEGATIVE) 08/03/24 10:36 Cryptosporid parvum Ag Negative (NEGATIVE) 08/03/24 10:36 Giardia lamblia Ag Negative (NEGATIVE) 08/03/24 10:36 Reason For Visit: DEHYDRATION, AKF, DIARRHEA Discharge Diagnosis All Active Problems (Updated 08/03/24 @ 12:24 by Renetta Laurent MD) GERD (gastroesophageal reflux disease) (Chronic) Hypertension (Chronic) Colitis (Acute) Dehydration (Acute) Acute renal failure (Acute) Diarrhea (Acute) Plan of Treatment: Continue with present treatment and follow up plan. Pt is to keep follow up appointment as instructed and take medications as ordered. Discharge Medications Discharge Medications: No Known Drug Allergies Allergy (Verified 08/03/24 08:33) CONTINUE taking the following medications clonazepam 1 mg tablet 1 mg PO QPM PRN 08/03/24 [History] folic acid 1 mg tablet 1 mg PO DAILY 08/03/24 [History] lisinopril 20 mg tablet 20 mg PO BID 08/03/24 [History] montelukast 10 mg tablet 10 mg PO QDAY 08/03/24 [History] multivit-minerals no.73-iron fumarate 106 mg-folic acid 1 mg capsule (Centratex) 1 cap PO DAILY 08/03/24 [History] omeprazole 40 mg capsule,delayed release 40 mg PO QDAY 08/03/24 [History] tizanidine 4 mg tablet 4 mg PO QHS 08/03/24 [History] New Prescriptions ciprofloxacin HCl 500 mg tablet 500 mg PO BID 7 days #14 tabs 08/05/24 [Rx] metronidazole 500 mg tablet 500 mg PO Q8H 7 days #21 tabs 08/05/24 [Rx] Discharge Disposition Discharge Disposition: To home Discharge Condition: Stable Discharge Plan Discharge Plan Hospital Course: Mr. Hull is a 74-year-old male with a past medical history of hypertension, diabetes, GERD, hyperlipidemia presented with worsening diarrhea, abdominal pain and weakness. He reports having intermittent diarrhea for the past month but recently got worse. He did see his PCP on Sunday and dropped off a stool sample. He states he was going over 30 times a day to the bathroom with loose stool. Denies any blood. He has not been able to eat much for the past few days due to decreased appetite and nausea. Denies vomiting. He reports left lower quadrant abdominal pain. He also reports not able to urinate for the past 3 days. ER workup showed elevated WBC, creatinine 2.9 BUN 44. He was started on IV fluids. His stool studies show FOBT positive, fecal WBC positive, negative C. difficile and Campy. CTAP showed fluid-filled enterocolonic segments with scattered air-fluid levels in keeping with a nonspecific diarrhea related illness. He was admitted for further evaluation. He was started on IV antibiotics. His labs were monitored daily and electrolytes replaced as needed. He was continued on hydration and his renal function improved. His diet was advanced as tolerated. His diarrhea and abdominal pain resolved. He was tolerating p.o. intake. He was ambulating in the room. He was stable for discharge home on p.o. antibiotics. He will follow-up with PCP as scheduled. Patient Disposition: 01 HOME, SELF-CARE Condition: Stable Health Concerns: Post Hospitalization: new medications and changes needed to prevent readmission or further decline. Pt educated and given instructions on all concerns. Care Plan Goals: Problem: Pain/Alteration in Comfort Goal: Improve/ Resolve Pain; Achieve Pain Tolerance Instructions: Take pain medications as prescribed. Contact your primary care provider if your pain is unrelieved or worsens. Follow up with primary care provider as directed. Plan of Treatment: Continue with present treatment and follow up plan. Pt is to keep follow up byron ointment as instructed and take medications as ordered. Prescription drug monitoring program results: PDMP reviewed and no concerns identified Prescriptions: New ciprofloxacin HCl 500 mg tablet 500 mg PO BID 7 Days Qty: 14 0RF metronidazole 500 mg tablet 500 mg PO Q8H 7 Days Qty: 21 0RF Lactobacillus acidophilus 1 billion cell capsule 1,000 mmu cells PO BID 10 Days Qty: 20 0RF Continued Lisinopril 10 mg Tab 10 mg PO BID Patient Comments: Rx Instructions: Take with Lisinopril 20mg to equal Lisinopril 30mg Q Day escitalopram oxalate [Lexapro] 20 MG tablet 30 mg PO HS rosuvastatin [Crestor] 40 mg Tablet 40 mg PO HS fenofibrate 160 mg Tablet 160 mg PO QDAY clonazepam 1 mg tablet 1 mg PO QPM PRN montelukast 10 mg tablet 10 mg PO QDAY Centratex 106 mg iron- 1 mg Capsule 1 cap PO DAILY tizanidine 4 mg Tablet 4 mg PO QHS lisinopril 20 mg tablet 20 mg PO BID Rx Instructions: Take with Lisinopril 10mg to equal Lisinopril 30mg Q QM omeprazole 40 mg capsule,delayed release(DR/EC) 40 mg PO QDAY folic acid 1 mg Tablet 1 mg PO DAILY Follow ups/Referrals Follow ups/Referrals: Kev Wells [Primary Care Provider] - 08/11/24 9:45 am LENY STOKES [STAFF PHYSICIAN] - 1 WEEK (call tomorrow for appoinement ) Instructions Instructions: Food Choices to Help Relieve Diarrhea, Adult, Rehydration, Older Adult, Dehydration, Older Adult, [id number] Stand Alone Forms: Excuse From Work or School, Find Help Web Site, Post Hospital Follow Up Care
== END 2024-08-05 15:00 | disposition home or self-care (01) | DRG 683 ==
LOC: ER 08:15 → MED/SURG 10:37
PROVIDERS: ADMIT Internal Medicine; ATTEND Family Medicine
DX: R10.32 Left lower quadrant pain; E86.0 Dehydration; E83.42 Hypomagnesemia; N17.8 Other acute kidney failure; I10 Essential (primary) hypertension; R33.8 Other retention of urine; K92.1 Melena; E11.65 Type 2 diabetes mellitus with hyperglycemia; J44.9 Chronic obstructive pulmonary disease, unspecified; K52.89 Other specified noninfective gastroenteritis and colitis; Z65.8 Other specified problems related to psychosocial circumstances; Z59.89 Other problems related to housing and economic circumstances; K21.9 Gastro-esophageal reflux disease without esophagitis; E87.1 Hypo-osmolality and hyponatremia; R19.7 Diarrhea, unspecified; E78.5 Hyperlipidemia, unspecified